=== PATIENT | male | born 1980 | race Caucasian/White ===

== ENCOUNTER 2018-08-17 15:12 | Inpatient (IN) ==
[2018-08-17] MEDS ORDERED: Acetaminophen 325 MG TABLET PO PRN (23:47)
[2018-08-17] MEDS ORDERED: Naloxone 0.4 MG/ML INJ IVP PRN (23:47)
[2018-08-18] MEDS: *HR* HYDROcodone/Acet 5/325 mg TABLET PO PRN ×2 (00:33→06:14)
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
[2018-08-18 01:20] LABS: Bilirubin,Urine Negative (Negative); Blood,Urine Negative (Negative); Clarity,Urine Turbid (Clear); Color,Urine Yellow (Yellow); Glucose,Urine (UA) Normal (Normal); Ketones,Urine Negative (Negative); Leukocyte Esterase,Urine Negative (Negative); Nitrite,Urine Negative (Negative); Protein,Urine Trace mg/dL (Neg-Trace); Specific Gravity,Urine 1.019 (1.010-1.025); Urobilinogen,Urine Normal (Normal)
[2018-08-18 01:22] LABS: Bacteria,Urine None Seen per hpf (None-Few); Hyaline Casts,Urine None Seen per lpf (None-Few); RBC,Urine 0-3 per hpf (0-3); Squamous Epithelial Cell,Urine Few per lpf (None-Few); WBC,Urine 0-3 per hpf (0-3)
[2018-08-18 01:33] LABS: Amphetamine Screen,Urine Positive ng/mL (Cutoff=1000); Barbiturate Screen,Urine Negative ng/mL (Cutoff=200); Benzodiazepines Screen,Urine Negative ng/mL (Cutoff=200); Cannabinoid Screen,Urine Positive ng/mL (Cutoff = 50); Cocaine Screen,Urine Negative ng/mL (Cutoff= 300); Opiate Screen,Urine Positive ng/mL (Cutoff=300); Phencyclidine Screen,Urine Positive ng/mL (Cutoff=25)
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
--- NOTE | 2018-08-18 09:18 | Event Note ---
Date of Encounter: 08/18/18 Time of Encounter: 09:15 Mr. Faith is a 38 year old male with past medical history significant for IV drug and tobacco abuse who presents as hospital transfer from [facility] ER for left humeral fracture. Urine drug screen was positive for opioids, amphetamine, marijuana, and PCP. Left upper arm has a splint in place. Neuro and vascular function seem intact. Orthopedics Dr. Hart is following, appreciate help.
[2018-08-18] MEDS: *HR* Morphine 2 MG/ML SYRINGE IVP PRN ×3 (10:48→20:54)
--- NOTE | 2018-08-18 17:54 | Anesthesia Evaluation PreOp ---
Addendum entered and electronically signed by Alan Cardenas DO 08/19/18 06:51: Vital Signs/O2 Sat, Most Current Temp Pulse Resp BP Pulse Ox 98.6 F 88 16 139/80 97 08/19/18 04:27 08/19/18 04:27 08/19/18 04:27 08/19/18 04:27 08/19/18 04:27 ASA 3 Original Note: Date of Encounter: 08/18/18 Time of Encounter: 21:52 - Past History Planned Operation: ORIF left humerus Cardiac History: Denies any Significant Hx Pulmonary History: Smoker SUMMER LAW CLERK History: Denies Any Significant HX Other Medical History: Other (IV drug abuse (heroin)) Anesthesia History: No Prior Anesthetic Complications, Past Anesthesia (back surgery) Alcohol Use: none Drug use: IV Drug Use Medications and Allergies No Known Home Drugs 01/12/17 [History] Allergy/AdvReac Type Severity Reaction Status Date / Time No Known Allergies Allergy Verified 08/18/18 07:50 - Meds/Allergy Pre-op Review Medications Reviewed: Yes Allergies Reviewed: Yes Beta Blockers on Current Med List: No Anesthesia Results - Imaging EKG: report reviewed, image reviewed (SINUS RHYTHM POSSIBLE INFERIOR MYOCARDIAL INFARCTION, PROBABLY OLD) Anesthesia Exam Last Vital Signs Temp 98.2 F 08/18/18 15:13 Pulse 91 08/18/18 15:13 Resp 17 08/18/18 15:13 BP 127/91 08/18/18 15:13 Pulse Ox 100 08/18/18 15:13 Weight: 103 kg - HEENT Pupil (Motor): Pupils equal, EOMI Mallampati: III Teeth: Edentulous Oral Opening: Less than or equal to 3 - SUMMER LAW CLERK LOC: Oriented - Cardiac Rhythm: Regular Murmur: None - Pulmonary Breath Sounds: bilateral Clear Respiratory Effort: Symmetrical Anesthesia Assess/Plan Anesthetic Plan: General, Regional Nerve Block Regional Nerve Block Plan: Supraclavicular Monitoring Plan: Standard Monitors Recovery Plan: PACU
[2018-08-19] MEDS: *HR* Morphine 2 MG/ML SYRINGE IVP PRN ×2 (00:43→03:53)
[2018-08-19 05:38] LABS: Hematocrit 37.5 % (37.5-50.1); Hemoglobin 12.9 g/dL (12.9-16.9); Mean Corpuscular HGB Conc 34.4 g/dL (31.6-35.5); Mean Corpuscular Hemoglobin 29.9 pg (28.0-33.3); Mean Corpuscular Volume 86.8 fL (83.0-100.0); Mean Platelet Volume 9.2 fL (9.4-12.4); Platelet Count 277 K/mcL (140-400); Red Blood Count 4.32 M/mcL (4.19-5.50); Red Cell Distribution Width 14.5 % (11.5-14.5)
[2018-08-19 05:44] LABS: INR 1.2
[2018-08-19 05:47] LABS: Activated Partial Thrombo Time 34.1 Seconds (26.0-36.0)
[2018-08-19 06:01] LABS: BUN/Creatinine Ratio 14 (6-26); Blood Urea Nitrogen 7 mg/dL (6-20); Carbon Dioxide 25 mEq/L (23-29); Chloride 107 mEq/L (98-107); Glucose 113 mg/dL (70-105); Osmolality,Calculated 283 (280-300); Potassium 3.6 mEq/L (3.5-5.1); Sodium 137 mEq/L (136-145); eGFR For Non-African Americans > 60 (> 60)
--- NOTE | 2018-08-19 06:45 | Orthopedics Progress Note ---
Date of Encounter: 08/19/18 Time of Encounter: 06:45 Subjective Interval history: Patient seen this morning displaced left humeral shaft fracture neurovascular intact open reduction internal fixation today We reviewed the risks and benefits as well as recovery. All questions were answered. The patient agreed to this treatment plan and acknowledged an understanding of the treatment plan as described. Objective Vital signs: Vital Signs Temp Pulse Resp BP Pulse Ox 08/19/18 04:27 98.6 F 88 16 139/80 97 08/18/18 23:22 98.3 F 86 16 143/90 95 08/18/18 19:03 98.2 F 91 16 141/91 95 08/18/18 15:13 98.2 F 91 17 127/91 100 08/18/18 11:25 98.0 F 89 15 148/82 98 08/18/18 07:07 98.1 F 89 17 137/68 97 Intake and Output 08/18/18 08/18/18 08/19/18 15:59 23:59 07:59 Output Total 400 / 400 400 / 400 400 / 400 Balance -400 / -400 -400 / -400 -400 / -400 Output: Urine 400 / 400 400 / 400 400 / 400 Other: # Voids 1 1 1 Weight 103.2 kg Patient Weight 08/19/18 23:59 Weight 103.2 kg - Labs CBC & BMP: 08/19/18 04:55 08/19/18 04:55 Labs: Abnormal lab results WBC 11.5 K/mcL (4.3-11.1) H 08/19/18 04:55 MPV 9.2 fL (9.4-12.4) L 08/19/18 04:55 PT 13.0 Seconds (9.4-12.1) H 08/19/18 04:55 Creatinine 0.50 mg/dL (0.70-1.30) L 08/19/18 04:55 Glucose 113 mg/dL (70-105) H 08/19/18 04:55 Urine Clarity Turbid (Clear) A 08/18/18 01:06 Urine Opiates Screen Positive ng/mL (Xopsqj=124) H 08/18/18 01:06 Ur Phencyclidine Scrn Positive ng/mL (Cutoff=25) H 08/18/18 01:06 Ur Amphetamines Screen Positive ng/mL (Qsxznr=5578) H 08/18/18 01:06 U Marijuana (THC) Screen Positive ng/mL (Cutoff = 50) H 08/18/18 01:06 - VTE Documentation of Mechanical Device: Intermittent pneumatic compression device Consult Discharge Plan - Plan Referrals: NONE,PCP [Primary Care Provider] -
[2018-08-19] MEDS ORDERED: ROPIVACAINE HCL/PF 0.5% 30 ML VIAL ONE (07:01)
[2018-08-19] MEDS ORDERED: *HR* Midazolam HCl 2 MG/2 ML VIAL ONE (07:11)
[2018-08-19] MEDS ORDERED: Lidocaine -MPF 4% 5 ML AMPUL ONE (07:11)
[2018-08-19] MEDS ORDERED: *HR* FentaNYL (PF) 100 MCG/2 ML VIAL ONE ×2 (07:11→07:35)
[2018-08-19] MEDS ORDERED: *HR* Succinylcholine 200 MG/10 ML VIAL IVP ONE (07:11)
[2018-08-19] MEDS ORDERED: Lidocaine -MPF 2% 2 ML VIAL ONE (07:11)
[2018-08-19] MEDS ORDERED: *HR* Propofol 200 MG/20 ML VIAL IVP ONE ×2 (07:11→07:40)
[2018-08-19] MEDS ORDERED: Ondansetron 4 MG/2 ML VIAL ONE (07:53)
[2018-08-19] MEDS ORDERED: Dexamethasone 4 MG/ML VIAL ONE (07:53)
[2018-08-19] MEDS ORDERED: Ethanol\\Acetic Acid\\Na Ace\\Ben 1,000 ML IRRIG.SOLN IR ONE (08:05)
[2018-08-19] MEDS ORDERED: ceFAZolin 2,000 MG in Water for inj. (sterile) 20 ML IVP ONE (08:13)
--- NOTE | 2018-08-19 08:42 | Orthopedic Operative Note ---
Date of procedure: 08/19/18 Pre-op diagnosis: Displaced left humerus fracture Post-op diagnosis: same Procedure: Procedure: Left open reduction internal fixation Humerus Estimated blood loss: 50 cc Hardware: Synthes 7 hole Large Frag 4.5 LCDCP locking Plate, 3 4.5 cortical screws, 4 5.0 Locking screws Procedural Notes: Operative procedure: The patient was brought to the operating room and placed on the operating room table. After general anesthesia was administered the operative arm was prepped and draped in the sterile surgical fashion The patient received IV antibiotics prior to skin incision. A standard anterior lateral approach is made to the humerus, the incision is made to the skin and subcutaneous tissue. Hemostasis was obtained with Bovie cautery. Using careful blunt dissection the interval between the brachialis and the brachial radialis was developed. The radial nerve was identified and protected. The brachialis was split and the fracture site was exposed. The fracture was irrigated of fracture hematoma. Fracture was reduced and held in place with bone holding forceps. A 7 hole 4.5 LCDCP locking plate was approximated to the anterior lateral surface, it was fixed initially compression and fixation was completed with a combination of compression and locking screws. Direct Vision of the hardware was found to be acceptable as well as the reduction. This was confirmed with postoperative evaluation. The PA close the arm The wound was irrigated and the interval was closed with a running #1 PDS suture. The subcutaneous tissues irrigated and closed deep with #1 PDS suture superficially with 0 PDS suture and skin was closed with Dermabond. The patient was placed in a sterile dressing, posterior splint. The patient was extubated, and then transferred to the recovery room in stable condition. Anesthesia: GETA Surgeon: Nico Hart Was there an traffic assistant present: No Estimated blood loss (cc): 50 Condition: stable Disposition: PACU
--- NOTE | 2018-08-19 09:17 | Event Note ---
Date of Encounter: 08/19/18 Time of Encounter: 09:16 Posterior splint placed. No shoulder or elbow motion Remain in slingshot brace nonweightbearing to the operative extremity Discharge on Clindamycin 150mg TID x 7 days Follow up outpatient with ortho
--- NOTE | 2018-08-19 09:20 | Anesthesia Procedures ---
Date of Encounter: 08/19/18 Time of Encounter: 07:25 Procedures: Anesthesia - Nerve Block Procedure Date: 08/19/18 Time: 07:25 Allergies/Adv Reactions: NKDA Pre-op Diagnosis: L Humerus Fx Surgical Procedure: L Humerus ORIF Checklist: Correct Patient Identifier, Correct procedure, History checked Correct side: Left Blood Thinner: No Monitor Applied: EKG, BP, Pulse Oximetry Supplemental Oxygen via Nasal Cannula (L/min): 2 Sedation: Versed (mg): 2 Sedation: Fentanyl (mcg): 200 Indication: Post Op Analgesia Pre-op Neuro Deficits: No Block Type: Supraclavicular Catheter placed: No Sterile Technique: Yes Ultrasound used: Yes Anatomy identified: Yes Visual spread of Local: Yes Neuro Stimulation: No Blood on Needle Aspiration: No Smooth Injection of Local: Yes Pain with Injection of Local: No Prep: Chlorhexadine Needle: 22 x 50 mm Stimuplex Local: Ropivacaine ((30mL 0.5% Ropivacaine with 8mg Decadron)) Volume (cc): 30 Number of Attempts: 1 Complications: None/effective block Vitals: HR 86 RR 20 BP 147/82 SpO2 100% Vital Signs/O2 Sat/Glucose, Most Recent Temp Pulse Resp BP Pulse Ox 97.7 F 90 16 119/83 95 08/19/18 09:19 08/19/18 09:19 08/19/18 09:19 08/19/18 09:19 08/19/18 09:19
--- NOTE | 2018-08-19 09:44 | Anesthesia Evaluation Post Op ---
Date of Encounter: 08/19/18 Time of Encounter: 09:44 - Vital Signs Vital Signs: Vital Signs/O2 Sat/Glucose, Most Recent Temp Pulse Resp BP Pulse Ox 97.8 F 93 16 130/79 97 08/19/18 09:39 08/19/18 09:39 08/19/18 09:39 08/19/18 09:39 08/19/18 09:39 - Lungs Lungs: Clear Ascult./Percussion - Airway Airway: Non-obstructed - Cardiovascular Regular Rate - Mental Status Mental Status: Alert & Oriented, Answers Appropriately - Pain Pain Scale: 0 - Nausea Vomiting Nausea Vomiting: Not Present - Hydration Hydration: NPO - Discharge PostOp Status: Transfer Patient to floor
[2018-08-19 10:47] LABS: Hematocrit 37.7 % (37.5-50.1); Hemoglobin 12.2 g/dL (12.9-16.9)
[2018-08-19] MEDS ORDERED: *HR* Morphine 2 MG/ML SYRINGE IVP PRN (11:35)
[2018-08-19] MEDS ORDERED: Sennosides 8.6 MG TABLET PO PRN (11:35)
[2018-08-19] MEDS ORDERED: Ringers Solution, Lactated 1,000 ML IVC SCH (11:35)
[2018-08-19] MEDS ORDERED: *HR* HYDROcodone/Acet 5/325 mg TABLET PO PRN (11:35)
[2018-08-19] MEDS ORDERED: Temazepam 15 MG CAPSULE PO PRN (11:35)
[2018-08-19] MEDS ORDERED: Naloxone 0.4 MG/ML INJ IVP PRN (11:35)
[2018-08-19] MEDS ORDERED: Acetaminophen 325 MG TABLET PO PRN (11:35)
[2018-08-19] MEDS ORDERED: MOM Conc 10 ML UD.LIQ PO PRN (11:35)
[2018-08-19] MEDS ORDERED: Ondansetron 4 MG/2 ML VIAL IVP PRN (11:35)
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
[2018-08-19 16:07] VITALS: BP 128/72
== END 2018-08-19 16:06 | disposition home or self-care (01) | DRG 315 ==
LOC: 3BNU → SUATTDRO 08-18 15:48
PROVIDERS: ADMIT Internal Medicine; ATTEND Family Medicine